=== PATIENT | male | born 1990 | race Caucasian/White ===

== ENCOUNTER 2020-02-13 16:41 | Emergency (ER) | payer SELFPAY ==
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
== END 2020-02-13 17:58 | disposition home or self-care (01) ==
LOC: EEVIPCON 16:41 → JD.ED 16:41
DX: S83.91XA Sprain of unspecified site of right knee, initial encounter (principal); F17.210 Nicotine dependence, cigarettes, uncomplicated; Z88.0 Allergy status to penicillin; X50.1XXA Overexertion from prolonged static or awkward postures, initial encounter; Y93.61 Activity, american tackle football
CPT/HCPCS: 99282; 99283

== ENCOUNTER 2020-04-06 09:18 | Emergency (ER) | payer SELFPAY ==
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
[2020-04-06] MEDS ORDERED: Doxycycline 100 MG Cap PO ONE (10:33)
== END 2020-04-06 11:10 | disposition home or self-care (01) ==
LOC: JD.ED 09:18
DX: L02.01 Cutaneous abscess of face (principal); F17.210 Nicotine dependence, cigarettes, uncomplicated; Z88.0 Allergy status to penicillin
CPT/HCPCS: 99283; A9270